=== PATIENT | male | born 1970 | race Caucasian/White ===

== ENCOUNTER 2019-01-07 08:53 | Observation (INO) | payer SELFPAY ==
[~2019-01-07] VITALS: Ht 185.4 cm; Wt 84.5 kg
[2019-01-07 09:24] LABS: BASO # 0.1 x10^3/uL (0.0-0.2); BASO % 1 % (0-3); EOS # 0.6 x10^3/uL (0.0-0.7); EOS % 6 % (0-3); HEMATOCRIT 47.6 % (39.0-53.0); HEMOGLOBIN 16.1 g/dL (13.0-17.5); LYMPH % 19 % (24-48); MEAN CORPUSCULAR HEMOGLOBIN 30 pg (25-35); MEAN CORPUSCULAR HGB CONC 34 g/dL (31-37); MEAN CORPUSCULAR VOLUME 89 fL (79-100); MONO # 0.7 x10^3/uL (0.0-1.1); MONO % 7 % (0-9); NEUT # 7.1 x10^3uL (1.8-7.7); NEUT % 68 % (31-73); PLATELET COUNT 341 x10^3/uL (140-400); RED BLOOD COUNT 5.37 x10^6/uL (4.30-5.70); WHITE BLOOD COUNT 10.4 x10^3/uL (4.0-11.0)
--- NOTE | 2019-01-07 09:26 | RAD ---
CHEST AP ONLY Clinical Indication: Chest pain Comparison: None. Findings: The cardiomediastinal silhouette is normal. Slight central pulmonary vasculature congestion noted. Lungs are clear. There is no pneumothorax. No pleural effusion is appreciated. No acute bone abnormality. IMPRESSION: No focal infiltrate. Electronically signed by: Luisito Herrera MD (01/07/2019 9:24 AM) [id number]
[2019-01-07 09:33] LABS: CALCIUM 8.8 mg/dL (8.5-10.1); CREATININE 0.9 mg/dL (0.7-1.3); GFR 90.4; POTASSIUM 3.7 mmol/L (3.5-5.1); PROTHROMBIN TIME PATIENT 12.1 SEC (11.7-14.0)
--- NOTE | 2019-01-07 09:35 | PHYS DOC ---
Adult General Chief Complaint Chief Complaint: CHEST PAIN HPI HPI History of present illness: This is a pleasant 48-year-old male presenting the emergency room today with chest pain that is a sharp pressure sensation on the right side of the chest is nonradiating worse with exertion dyspnea present for approximate 48 hours. He denies unilateral leg swelling hemoptysis, recent immobilization or surgery or history of DVT or PE. He denies having diabetes high blood pressure or hyperlipidemia. He does have a family history of heart disease and is a smoker. Past medical history: History of chronic back pain Surgical history history of eye implants Social history smoker, denies drinking or IV drug use. Denies cocaine use. Family history: Patient has a family history of heart disease including massive HI and of father at 49 and massive HI and CABG at 39 of uncle on father's side. Review of systems is negative for abdominal pain nausea vomiting. He does get intermittent shortness of breath but he denies diaphoresis. All other review of systems is negative. All other review of systems is negative unless otherwise noted in history of present illness. ED course: 48-year-old male presenting the emergency room today with chest pain. EKG obtained on arrival shows sinus rhythm with a regular rate. ST segments are congruent. Nonspecific T-wave inversions and flattening in V1 and V2. Not suggestive of ACS. Chest x-ray ordered along with blood work. Workup unremarkable. We will admit for chest pain rule out. Spoke to Damari. Basic bridge orders placed. Review of Systems Review of Systems SEE ABOVE. Physical Exam Physical Exam SEE ABOVE Constitutional: Well developed, well nourished, no acute distress, non-toxic appearance. [] HENT: Normocephalic, atraumatic, bilateral external ears normal, oropharynx moist, no oral exudates, nose normal. [] Eyes: PERRLA, EOMI, conjunctiva normal, no discharge. [] Neck: Normal range of motion, no tenderness, supple, no stridor. [] Cardiovascular:Heart rate regular rhythm, no murmur [] Lungs & Thorax: Bilateral breath sounds clear to auscultation [] Abdomen: Bowel sounds normal, soft, no tenderness, no masses, no pulsatile masses. [] Skin: Warm, dry, no erythema, no rash. [] Back: No tenderness, no CVA tenderness. [] Extremities: No tenderness, no cyanosis, no clubbing, ROM intact, no edema. [] Neurologic: Alert and oriented X 3, normal motor function, normal sensory function, no focal deficits noted. [] Psychologic: Affect normal, judgement normal, mood normal. [] Current Patient Data Lab Values Laboratory Tests Test 01/07/19 09:10 White Blood Count 10.4 x10^3/uL (4.0-11.0) Red Blood Count 5.37 x10^6/uL (4.30-5.70) Hemoglobin 16.1 g/dL (13.0-17.5) Hematocrit 47.6 % (39.0-53.0) Mean Corpuscular Volume 89 fL (79-100) Mean Corpuscular Hemoglobin 30 pg (25-35) Mean Corpuscular Hemoglobin Concent 34 g/dL (31-37) Red Cell Distribution Width 14.0 % (11.5-14.5) Platelet Count 341 x10^3/uL (140-400) Neutrophils (%) (Auto) 68 % (31-73) Lymphocytes (%) (Auto) 19 % (24-48) L Monocytes (%) (Auto) 7 % (0-9) Eosinophils (%) (Auto) 6 % (0-3) H Basophils (%) (Auto) 1 % (0-3) Neutrophils # (Auto) 7.1 x10^3uL (1.8-7.7) Lymphocytes # (Auto) 2.0 x10^3/uL (1.0-4.8) Monocytes # (Auto) 0.7 x10^3/uL (0.0-1.1) Eosinophils # (Auto) 0.6 x10^3/uL (0.0-0.7) Basophils # (Auto) 0.1 x10^3/uL (0.0-0.2) Prothrombin Time 12.1 SEC (11.7-14.0) Prothrombin Time INR 0.9 (0.8-1.1) PTT 30 SEC (24-38) Sodium Level 140 mmol/L (136-145) Potassium Level 3.7 mmol/L (3.5-5.1) Chloride Level 103 mmol/L (98-107) Carbon Dioxide Level 29 mmol/L (21-32) Anion Gap 8 (6-14) Blood Urea Nitrogen 13 mg/dL (8-26) Creatinine 0.9 mg/dL (0.7-1.3) Estimated GFR (Cockcroft-Gault) 90.4 Glucose Level 95 mg/dL (70-99) Calcium Level 8.8 mg/dL (8.5-10.1) Total Bilirubin 0.3 mg/dL (0.2-1.0) Direct Bilirubin 0.1 mg/dL (0.0-0.2) Aspartate Amino Transferase (AST) 15 U/L (15-37) Alanine Aminotransferase (ALT) 17 U/L (16-63) Alkaline Phosphatase 78 U/L (46-116) Troponin I Quantitative < 0.017 ng/mL (0.000-0.055) IN-Hfy-H-Type Natriuretic Peptide 34 pg/mL (0-124) Total Protein 6.9 g/dL (6.4-8.2) Albumin 3.5 g/dL (3.4-5.0) Lipase 149 U/L (73-393) Laboratory Tests 01/07/19 09:10 Laboratory Tests 01/07/19 09:10 EKG EKG [] Radiology/Procedures Radiology/Procedures [] Course & Med Decision Making Course & Med Decision Making Pertinent Labs and Imaging studies reviewed. (See chart for details) [] Dragon Disclaimer Dragon Disclaimer This electronic medical record was generated, in whole or in part, using a voice recognition dictation system. Departure Departure Impression: Primary Impression: Chest pain Disposition: ADMITTED INPATIENT Admitting Physician: Ailyn Wetzel Condition: STABLE Referrals: NO PCP (PCP) DASHAWN SCHERER MD January 07, 2019 09:35
[2019-01-07 09:39] LABS: ALBUMIN 3.5 g/dL (3.4-5.0); DIRECT BILIRUBIN 0.1 mg/dL (0.0-0.2); TOTAL BILIRUBIN 0.3 mg/dL (0.2-1.0); TOTAL PROTEIN 6.9 g/dL (6.4-8.2)
[2019-01-07] MEDS ORDERED: ASPIRIN CHEWABLE 81 MG TABLET. PO ONE (09:45)
[2019-01-07] MEDS ORDERED: MORPHINE SULFATE 2 MG/ML VIAL. IV PRN (10:00)
[2019-01-07] MEDS ORDERED: NITROGLYCERIN SUBLINGUAL 0.4 MG BOTTLE OF 25. SL PRN (10:00)
[2019-01-07] MEDS ORDERED: IOHEXOL 350 MG/ML 100 ML VIAL. IV ONE (10:15)
[2019-01-07] MEDS ORDERED: CONTRAST GIVEN. MC PRN (10:15)
[2019-01-07 10:35] VITALS: BP 130/98
--- NOTE | 2019-01-07 10:50 | RAD ---
Examination: CT ANGIOGRAPHY CHEST History: Chest pain Comparison/Correlation: AP view of the chest 01/07/2019 Findings: Axial images of chest were obtained following IV contrast according to pulmonary arteriography protocol. Sagittal and coronal reformatted images were provided. MIP images provided. Excellent opacification of the aortic and pulmonary arterial vasculature is noted. Pulmonary arterial vasculature is normal with no thromboembolic disease. Thoracic aorta is unremarkable with no aneurysm. No dissection is suspected although motion at the aortic root limits evaluation. Emphysematous bullous involvement of the lung ybarra in particular is noted. No pulmonary nodule or mass. No infiltrate or pleural effusion. Atelectasis is present. Tracheobronchial tree is unremarkable. No enlarged thoracic lymph nodes. Debris is noted within the stomach. No acute bony process. Impression: No pulmonary arterial thromboembolic disease. No infiltrate. Emphysematous involvement of the lung apices primarily noted. PQRS Compliance Statement: One or more of the following individualized dose reduction techniques were utilized for this examination: 1. Automated exposure control 2. Adjustment of the mA and/or kV according to patient size 3. Use of iterative reconstruction technique Electronically signed by: Luisito Herrera MD (01/07/2019 10:48 AM) [id number]
--- NOTE | 2019-01-07 13:49 | PDOC2 ---
CARDIAC CONSULT DATE OF CONSULT Date of Consult DATE: 01/07/19 TIME: 13:47 REASON FOR CONSULT Reason for Consult: Chest pain REFERRING PHYSICIAN Referring Physician: Fullbright CURRENT MEDICATIONS CURRENT MEDICATIONS Current Medications Medications (Trade) Dose Ordered Sig/Mariangel Route PRN Reason Start Time Stop Time Status Last Admin Dose Admin Aspirin (Children'S Aspirin) 324 mg 1X ONCE PO 01/07/19 09:45 01/07/19 09:50 DC 01/07/19 09:45 Morphine Sulfate (Morphine Sulfate) 2 mg PRN Q1HR PRN IV SEVERE PAIN 01/07/19 10:00 01/08/19 10:00 01/07/19 10:13 Iohexol (Omnipaque 350 Mg/ml) 100 ml 1X ONCE IV 01/07/19 10:15 01/07/19 10:16 DC 01/07/19 10:34 ALLERGIES ALLERGIES: Coded Allergies: No Known Drug Allergies (Unverified , 01/07/19) VITALS VITALS Vital Signs Date Time Temp Pulse Resp B/P (MAP) Pulse Ox O2 Delivery O2 Flow Rate FiO2 01/07/19 11:04 Room Air 01/07/19 11:00 98 01/07/19 10:35 97.4 65 18 130/98 (109) 98.0 97.4 LABS Lab: Laboratory Tests Test 01/07/19 09:10 White Blood Count 10.4 x10^3/uL (4.0-11.0) Red Blood Count 5.37 x10^6/uL (4.30-5.70) Hemoglobin 16.1 g/dL (13.0-17.5) Hematocrit 47.6 % (39.0-53.0) Mean Corpuscular Volume 89 fL (79-100) Mean Corpuscular Hemoglobin 30 pg (25-35) Mean Corpuscular Hemoglobin Concent 34 g/dL (31-37) Red Cell Distribution Width 14.0 % (11.5-14.5) Platelet Count 341 x10^3/uL (140-400) Neutrophils (%) (Auto) 68 % (31-73) Lymphocytes (%) (Auto) 19 % (24-48) Monocytes (%) (Auto) 7 % (0-9) Eosinophils (%) (Auto) 6 % (0-3) Basophils (%) (Auto) 1 % (0-3) Neutrophils # (Auto) 7.1 x10^3uL (1.8-7.7) Lymphocytes # (Auto) 2.0 x10^3/uL (1.0-4.8) Monocytes # (Auto) 0.7 x10^3/uL (0.0-1.1) Eosinophils # (Auto) 0.6 x10^3/uL (0.0-0.7) Basophils # (Auto) 0.1 x10^3/uL (0.0-0.2) Prothrombin Time 12.1 SEC (11.7-14.0) Prothromb Time International Ratio 0.9 (0.8-1.1) Activated Partial Thromboplast Time 30 SEC (24-38) Sodium Level 140 mmol/L (136-145) Potassium Level 3.7 mmol/L (3.5-5.1) Chloride Level 103 mmol/L (98-107) Carbon Dioxide Level 29 mmol/L (21-32) Anion Gap 8 (6-14) Blood Urea Nitrogen 13 mg/dL (8-26) Creatinine 0.9 mg/dL (0.7-1.3) Estimated GFR (Cockcroft-Gault) 90.4 Glucose Level 95 mg/dL (70-99) Calcium Level 8.8 mg/dL (8.5-10.1) Total Bilirubin 0.3 mg/dL (0.2-1.0) Direct Bilirubin 0.1 mg/dL (0.0-0.2) Aspartate Amino Transf (AST/SGOT) 15 U/L (15-37) Alanine Aminotransferase (ALT/SGPT) 17 U/L (16-63) Alkaline Phosphatase 78 U/L (46-116) Troponin I Quantitative < 0.017 ng/mL (0.000-0.055) WH-Ujv-Y-Type Natriuretic Peptide 34 pg/mL (0-124) Total Protein 6.9 g/dL (6.4-8.2) Albumin 3.5 g/dL (3.4-5.0) Lipase 149 U/L (73-393) ASSESSMENT/PLAN ASSESSMENT/PLAN CP COPD with tobaccoism MINA HICKS APRN January 07, 2019 13:49
--- NOTE | 2019-01-07 14:04 | NUR ---
Patient asked to leave at this time. No physicians have seen the patient at this time. Dr. Macias was called and informed that the patient signed an AMA form and is leaving. Patient is stable and is walking out under his own power with .
--- NOTE | 2019-01-07 14:08 | EKG ---
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
== END 2019-01-07 14:05 | disposition left against medical advice (07) ==
LOC: ER 08:53 → 2 NORTH 09:32
PROVIDERS: ADMIT Internal Medicine; ATTEND Internal Medicine
DX: R07.89 Other chest pain (principal); G89.29 Other chronic pain; M54.9 Dorsalgia, unspecified; Z82.49 Family history of ischemic heart disease and other diseases of the circulatory system; Z87.891 Personal history of nicotine dependence
CPT/HCPCS: 36415; 71045; 71275; 80048; 80076; 83690; 83880; 84484; 85025; 85610; 85730; 93005; 96374; 99284; 99406; G0378; J2270; Q9967; G0379